=== PATIENT | female | born 1985 | race Caucasian/White ===

== ENCOUNTER → 2017-04-29 | Outpatient (CLI) | payer OTHER ==
[~2017-04-29] MED LIST: CALC500T93 PO; DOCU-131 PO; HYDR-3240 PO; IBUP-1222 PO; LEVO137T3 PO; LEVO150T5 PO; PRENATAL VITAMIN PO; PROBIOTIC PO
== END | disposition home or self-care (01) ==
LOC: LAB 12:06
PROVIDERS: ATTEND Obstetrics & Gynecology
DX: E03.9 Hypothyroidism, unspecified (principal)
CPT/HCPCS: 36415; 84439; 84443

== ENCOUNTER 2018-05-29 03:59 | Inpatient (IN) | payer OTHER ==
[~2018-05-29] VITALS: Ht 165.1 cm; Wt 70.0 kg
[2018-05-29] MEDS ORDERED: OXYTOCIN 30U/ 0.9% NaCL 500ML 500 ML IV ONE (04:16)
[2018-05-29] MEDS ORDERED: AMPICILLIN 2 GM in SODIUM CHLORIDE 0.9% 100 ML IVPB STA (04:16)
[2018-05-29] MEDS ORDERED: D5%-LACTATED RINGERS 1,000 ML IV SCH (04:16)
[2018-05-29] MEDS ORDERED: LACTATED RINGERS 1,000 ML IV SCH (04:16)
[2018-05-29] MEDS ORDERED: OXYTOCIN 30U/ 0.9% NaCL 500ML 500 ML ONE (04:17)
[2018-05-29] MEDS ORDERED: ONDANSETRON 2MG/ML, 2ML IVPush PRN (04:30)
[2018-05-29] MEDS ORDERED: AMPICILLIN 1 GM in SODIUM CHLORIDE 0.9% 100 ML IVPB SCH (04:30)
[2018-05-29] MEDS ORDERED: FENTANYL PF 100 MCG/2ML IV PRN (04:30)
[2018-05-29] MEDS ORDERED: ALUMINUM/MAG/SIMETHICONE 30 ML UDC PO PRN (04:30)
[2018-05-29] MEDS ORDERED: FENTANYL PF 100 MCG/2ML IVPush PRN (04:30)
[2018-05-29] MEDS ORDERED: SODIUM CHLORIDE FLUSH 10ML SYR IVF PRN (04:30)
[2018-05-29] MEDS ORDERED: SODIUM CITRATE/CITRIC ACID 30 ML UDC PO PRN (04:30)
[2018-05-29] MEDS ORDERED: METOCLOPRAMIDE 5 MG/ML, 2ML IVPush PRN (04:30)
[2018-05-29] MEDS ORDERED: CALCIUM CARBONATE 500 MG TAB.CHEW PO PRN (04:30)
[2018-05-29] MEDS ORDERED: TERBUTALINE 1 MG/ML, 1ML IVPush PRN ×2 (04:30)
[2018-05-29] MEDS ORDERED: TERBUTALINE 1 MG/ML, 1ML SQ PRN (04:30)
[2018-05-29] MEDS ORDERED: LIDOCAINE/PF 1%, 30ML ONE (04:39)
[2018-05-29] MEDS ORDERED: MISOPROSTOL 200 MCG TABLET ONE ×2 (04:40→06:56)
[2018-05-29 05:03] LABS: BASOPHILS # (AUTO) 0.01 x10^3/uL (0-0.1); BASOPHILS % (AUTO) 0 % (0-1); EOSINOPHILS # (AUTO) 0.05 x10^3/uL (0-0.4); EOSINOPHILS % (AUTO) 0 % (1-7); LYMPHOCYTES # (AUTO) 1.35 x10^3/uL (1-3.4); LYMPHOCYTES % (AUTO) 10 % (22-44); MD NO; MEAN CORPUSCULAR HEMOGLOBIN 33.9 pg (27.0-34.8); MEAN CORPUSCULAR HGB CONC 34.9 g/dL (32.4-35.8); MEAN CORPUSCULAR VOLUME 97.1 fL (80-100); MEAN PLATELET VOLUME 7.9 fL (7.4-10.4); MONOCYTES # (AUTO) 1.29 x10^3/uL (0.2-0.8); MONOCYTES % (AUTO) 9 % (2-9); NEUTROPHILS # (AUTO) 11.25 x10^3/uL (1.8-6.8); NEUTROPHILS % (AUTO) 81 % (42-75); PLATELET COUNT 214 x10^3/uL (130-400); RED BLOOD COUNT 3.88 x10^6/uL (3.82-5.3); RED CELL DISTRIBUTION WIDTH 13.2 % (9.6-15.2)
[2018-05-29] MEDS ORDERED: OXYTOCIN 30U/ 0.9% NaCL 500ML 500 ML IV SCH (09:34)
[2018-05-29] MEDS ORDERED: HYDROcodone/APAP 5/325 TABLET PO PRN ×2 (10:00)
[2018-05-29] MEDS ORDERED: MISOPROSTOL 200 MCG TABLET PR ONE (10:00)
[2018-05-29] MEDS ORDERED: ACETAMINOPHEN 325 MG TABLET PO PRN ×2 (10:00)
[2018-05-29 11:50] VITALS: BP 108/75
[2018-05-29] MEDS: IBUPROFEN 600 MG TABLET PO PRN ×2 (14:59→20:46)
[2018-05-29 16:00] VITALS: BP 105/67
[2018-05-29 17:22] LABS: MEAN CORPUSCULAR HEMOGLOBIN 33.7 pg (27.0-34.8); MEAN CORPUSCULAR HGB CONC 34.9 g/dL (32.4-35.8); MEAN CORPUSCULAR VOLUME 96.7 fL (80-100); PLATELET COUNT 227 x10^3/uL (130-400); RED BLOOD COUNT 3.56 x10^6/uL (3.82-5.3)
[2018-05-29 18:18] LABS: BASOPHILS # (AUTO) 0.05 x10^3/uL (0-0.1); BASOPHILS % (AUTO) 0 % (0-1); EOSINOPHILS # (AUTO) 0.02 x10^3/uL (0-0.4); EOSINOPHILS % (AUTO) 0 % (1-7); LYMPHOCYTES # (AUTO) 1.29 x10^3/uL (1-3.4); LYMPHOCYTES % (AUTO) 8 % (22-44); MD SCAN; MONOCYTES # (AUTO) 1.69 x10^3/uL (0.2-0.8); MONOCYTES % (AUTO) 11 % (2-9); NEUTROPHILS # (AUTO) 12.78 x10^3/uL (1.8-6.8); NEUTROPHILS % (AUTO) 81 % (42-75)
[2018-05-29 20:00] VITALS: BP 112/73
[2018-05-29] MEDS: DOCUSATE 100 MG CAPSULE PO PRN (20:46)
[2018-05-30] VITALS: BP 104/69
[2018-05-30] MEDS: IBUPROFEN 600 MG TABLET PO PRN (04:32)
[2018-05-30 09:00] VITALS: BP 108/68
[2018-05-30] MEDS ORDERED: PRENATAL VIT/IRON/FA 1 EACH TABLET PO SCH (09:00)
[2018-05-30] MEDS ORDERED: HYDR-3240 PO (11:17)
[2018-05-30] MEDS: DOCUSATE 100 MG CAPSULE PO PRN (12:01)
== END 2018-05-30 12:57 | disposition home or self-care (01) | DRG 807 ==
LOC: LDOP 03:59 → LDIP 04:18 → 2NW 11:35
PROVIDERS: ADMIT Obstetrics & Gynecology; ATTEND Obstetrics & Gynecology
PROC: 10E0XZZ Delivery of Products of Conception, External Approach (ICD-10-PCS; principal; 2018-05-29)
PROC: 0KQM0ZZ Repair Perineum Muscle, Open Approach (ICD-10-PCS; 2018-05-29)
PROC: 10907ZC Drainage of Amniotic Fluid, Therapeutic from Products of Conception, Via Natural or Artificial Opening (ICD-10-PCS; 2018-05-29)
DX: O99.824 Streptococcus B carrier state complicating childbirth (principal); Z37.0 Single live birth; O99.284 Endocrine, nutritional and metabolic diseases complicating childbirth; O62.2 Other uterine inertia; E03.9 Hypothyroidism, unspecified; Z3A.39 39 weeks gestation of pregnancy; O70.1 Second degree perineal laceration during delivery
CPT/HCPCS: 36415; 85025; 86850; 86900; G0378; J0290; J2590; J7120

== ENCOUNTER → 2019-01-15 | Outpatient (CLI) | payer OTHER ==
[2019-01-15 09:22] LABS: MEAN CORPUSCULAR HEMOGLOBIN 30.8 pg (27.0-34.8); MEAN CORPUSCULAR HGB CONC 31.9 g/dL (32.4-35.8); MEAN CORPUSCULAR VOLUME 96.5 fL (80-100); MEAN PLATELET VOLUME 7.9 fL (7.4-10.4); PLATELET COUNT 252 x10^3/uL (130-400); RED BLOOD COUNT 4.59 x10^6/uL (3.82-5.3); RED CELL DISTRIBUTION WIDTH 13.2 % (9.6-15.2)
[2019-01-15 09:36] LABS: ALANINE AMINOTRANSFERASE 27 U/L (12-78); ALBUMIN 4.5 g/dL (3.4-5.0); ANION GAP 5 mmol/L (5-15); CALCIUM 9.1 mg/dL (8.5-10.1); CHLORIDE 107 mmol/L (98-107); CREATININE 0.78 mg/dL (0.55-1.02)
[2019-01-15 09:46] LABS: ALKALINE PHOSPHATASE 66 U/L (45-117); BILIRUBIN,TOTAL 0.5 mg/dL (0.2-1.0); FREE T4 (FREE THYROXINE) 1.11 ng/dL (0.76-1.46)
== END | disposition home or self-care (01) ==
LOC: LAB 08:58
PROVIDERS: ATTEND Obstetrics & Gynecology
DX: E03.9 Hypothyroidism, unspecified (principal); F32.9 Major depressive disorder, single episode, unspecified
CPT/HCPCS: 36415; 80053; 84439; 84443; 85027

== ENCOUNTER 2020-03-19 14:37 | Emergency (ER) | payer OTHER ==
[~2020-03-19] VITALS: Ht 152.4 cm; Wt 60.0 kg
[2020-03-19 14:46] VITALS: BP 137/78
--- NOTE | 2020-03-19 15:19 | NUR ---
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
--- NOTE | 2020-03-19 15:49 | NUR ---
DR ALMONTE INFORMED THIS RN OF PT REFUSAL FOR LP.
[2020-03-19] MEDS ORDERED: DIPHENHYDRAMINE 50 MG/ML, 1ML IVPush ONE (16:00)
[2020-03-19] MEDS ORDERED: KETOROLAC 30 MG/1 ML IVPush ONE (16:00)
[2020-03-19] MEDS ORDERED: METOCLOPRAMIDE 5 MG/ML, 2ML IVPush ONE (16:00)
[2020-03-19] MEDS ORDERED: SODIUM CHLORIDE FLUSH 10ML SYR IVF ONE (16:00)
[2020-03-19] MEDS ORDERED: METHOCARBAMOL 750 MG TABLET PO ONE (16:00)
[2020-03-19] MEDS ORDERED: SODIUM CHLORIDE 0.9% 1,000ML IVBOLUS ONE (16:00)
[2020-03-19 16:13] LABS: BASOPHILS # (AUTO) 0.04 x10^3/uL (0-0.1); BASOPHILS % (AUTO) 0 % (0-1); EOSINOPHILS # (AUTO) 0.07 x10^3/uL (0-0.4); EOSINOPHILS % (AUTO) 1 % (1-7); LYMPHOCYTES # (AUTO) 1.95 x10^3/uL (1-3.4); LYMPHOCYTES % (AUTO) 23 % (22-44); MD NO; MEAN CORPUSCULAR HEMOGLOBIN 30.9 pg (27.0-34.8); MEAN CORPUSCULAR HGB CONC 32.6 g/dL (32.4-35.8); MEAN CORPUSCULAR VOLUME 94.8 fL (80-100); MEAN PLATELET VOLUME 8.3 fL (7.4-10.4); MONOCYTES # (AUTO) 0.65 x10^3/uL (0.2-0.8); MONOCYTES % (AUTO) 8 % (2-9); NEUTROPHILS # (AUTO) 5.99 x10^3/uL (1.8-6.8); NEUTROPHILS % (AUTO) 69 % (42-75); PLATELET COUNT 251 x10^3/uL (130-400); RED BLOOD COUNT 4.65 x10^6/uL (3.82-5.3); RED CELL DISTRIBUTION WIDTH 12.4 % (9.6-15.2)
[2020-03-19] MEDS ORDERED: METHOCARBAMOL 750 MG TABLET ONE (16:15)
[2020-03-19] MEDS ORDERED: METOCLOPRAMIDE 5 MG/ML, 2ML ONE (16:15)
[2020-03-19] MEDS ORDERED: DIPHENHYDRAMINE 50 MG/ML, 1ML ONE (16:15)
[2020-03-19] MEDS ORDERED: KETOROLAC 30 MG/1 ML ONE (16:16)
[2020-03-19 16:25] LABS: ALANINE AMINOTRANSFERASE 21 U/L (12-78); ALBUMIN 4.4 g/dL (3.4-5.0); ANION GAP 5 mmol/L (5-15); C-REACTIVE PROTEIN, QUANT 0.05 mg/dL (0.02-0.49); CHLORIDE 107 mmol/L (98-107)
[2020-03-19 16:31] LABS: ALKALINE PHOSPHATASE 55 U/L (45-117); CREATININE 0.77 mg/dL (0.55-1.02); TOTAL PROTEIN 7.9 g/dL (6.4-8.2)
[2020-03-19 16:32] LABS: BILIRUBIN,TOTAL 0.5 mg/dL (0.2-1.0)
[2020-03-19] MEDS ORDERED: OMNIPAQUE 350 MG/ML, 100ML BOTTLE ONE (17:07)
== END 2020-03-19 18:30 | disposition home or self-care (01) ==
LOC: ED 16:18
DX: Z11.59 Encounter for screening for other viral diseases (principal); R51 Headache; M54.2 Cervicalgia; R00.0 Tachycardia, unspecified; M79.10 Myalgia, unspecified site
CPT/HCPCS: 36415; 70450; 70496; 80053; 83605; 84145; 84703; 85025; 86140; 87635; 93005; 96361; 96374; 96375; 99285; J1200; J1885; J2765; J7030; Q9967

== ENCOUNTER → 2021-03-19 | Outpatient (CLI) | payer OTHER ==
[~2021-03-19] MED LIST changes: +HYDR-2214 PO; -HYDR-3240 PO
[2021-03-19 07:58] LABS: ALBUMIN 4.1 g/dL (3.4-5.0); CALCIUM 9.1 mg/dL (8.5-10.1)
[2021-03-19 08:07] LABS: ALANINE AMINOTRANSFERASE 27 U/L (12-78); ALKALINE PHOSPHATASE 50 U/L (45-117); BILIRUBIN,TOTAL 0.5 mg/dL (0.2-1.0); CHOL/HDL RATIO 3.1; CHOLESTEROL, TOTAL 179 mg/dL (140-239); CREATININE 0.81 mg/dL (0.55-1.02); FREE T4 (FREE THYROXINE) 1.14 ng/dL (0.76-1.46); HDL CHOL % 32 % (28-40); HDL CHOLESTEROL (DIRECT) 58 mg/dL (40-60); LDL CHOLESTEROL,CALCULATED 106 mg/dL (54-169); LDL/HDL RATIO 1.8 (0.5-3.0); TOTAL PROTEIN 7.8 g/dL (6.4-8.2); TRIGLYCERIDES 74 mg/dL (50-200); VLDL CHOLESTEROL 15 mg/dL (0-25)
[2021-03-19 08:35] LABS: ANION GAP 6 mmol/L (5-15); CHLORIDE 105 mmol/L (98-107)
== END | disposition home or self-care (01) ==
LOC: LAB 07:32
PROVIDERS: ATTEND Internal Medicine
DX: E03.9 Hypothyroidism, unspecified (principal)
CPT/HCPCS: 36415; 80053; 80061; 84439; 84443